=== PATIENT | male | born 1960 ===

== ENCOUNTER 2020-11-04 11:36 | Inpatient (IN) | payer MEDICARE ==
--- NOTE | 2020-11-05 08:08 | History and Physical Report ---
GP History & Physical - History of Present Illness Date of admission: 11/04/20 Date of Examination: 11/05/20 History of Present Illness: HPI Patient is a single, currently unemployed on SSI and homeless male with past psychiatric history of schizophrenia and past medical history of hypertension who presents today because he was advised by medical doctor that he needs mental health treatment. Patient states that he is hearing voices and had voiced being suicidal and also feeling depressed to the provider. Patient reported he is very lonely, and currently does not have a place to stay after being ejected from where he was living about a week ago due to failure to pay rent. Patient also reported that most of his family members attend, and the ones that are alive do not want to have anything to do with him. Patient presented with suicidal ideation, helplessness and hopelessness. Also endorses hearing voices telling him to end his life. Patient reports he has tried walking into the traffic so that he can get hit by car and . PAST PSYCHIATRIC HISTORY: Diagnoses: Schizophrenia Suicide attempts or Self-harm behavior: Yes Prior psychiatric hospitalizations: Yes Substance Abuse history: None reported Previous psychiatric medications tried: BuSpar, Celexa, Zyprexa Outpatient treatment: None report PAST MEDICAL HISTORY: Hypertension, diabetes Family Psychiatric History: None reported or documented SOCIAL HISTORY Marital Status: Single Living Arrangements: Homeless Employment Status: SSI Access to guns/weapons: None report Education: 12th grade History of Abuse: None report Legal History: Yes REVIEW OF SYSTEMS Constitutional: Negative for weight loss ENT: Negative for stridor Respiratory: Negative for cough or hemoptysis All other systems reviewed and are negative MENTAL STATUS EXAMINATION General Appearance and Behavior: Age appropriate, good hygiene, wearing appropriate clothes,, good eye contact Cooperation: Participating/engaged, but Guarded Psychomotor Behavior: Psychomotor normal Mood: depressed Affect and affective range: irritable, labile Thought Process: illogical Thought Content: hopelessness, helplessness Speech: Normal rate, volume and rythm Intellectual Functioning: Average Suicidal Ideation: SI Homicidal Ideation: Denies HI Impulse Control: Impaired Insight and Judgment: Limited insight and judgment Memory: Normal Attention: Normal Orientation: Alert, oriented Diagnoses: Treatment Plan Assessment and Plan - Psychiatric problem (1) Schizoaffective disorder Current Visit: Yes Status: Acute Patient home medications were resumed Patient admitted for inpatient psychiatric evaluation, medication adjustment and close monitoring The patient's behavior, mood, sleep and appetite will be closely monitored. Patient enrolled in individual and group therapeutic sessions and encouraged to attend. Patient provided with a safe and structured environment. Patient's physical health needs will be addressed by the Hospitalist. Hospitalist Consulted Labs including CBC, CMP, Lipid profile and Hemoglobin A1C levels ordered for baseline reference Social Assessment will be completed and the Data Collector will work with patient and family to ensure a suitable and safe disposition Medication adjustment will be made as clinically indicated Usual Wellness Scientology/Preservation: - Start Trazodone 50 mg po QHS & 50 mg po QHS PRN between 10 PM & 2 AM for insomnia - Start Melatonin 5 mg po QHS to promote circadian rhythm - Start [place]-3 for brain health, reduce impulsivity, and as adjunctive treatment for mood disorder, continue upon discharge given overall benefits. - Start B1 prophylaxis with 200 mg po for 5 days The patient agreed on the treatment plan, understood the risk, benefit, alternative treatment, potential consequence of no treatment, and gave informed consent. Initial Certification Inpatient psych services: I certify that the inpatient psychiatric services are required for treatment that could reasonably be expected to improve the patient's condition. Estimated days: 7 Post hospital care: primary care provider, psychiatric provider Patient Problems: Current Active Problems Schizoaffective disorder (Acute) Medications and Allergies Allergies Allergy/AdvReac Type Severity Reaction Status Date / Time Penicillins Allergy Unknown Unverified 11/04/20 11:37 Home Medications Medication Instructions Recorded Confirmed Last Taken Type Benztropine [Cogentin] 1 mg PO BID 11/04/20 11/04/20 Unknown History Cholecalciferol (Vitamin D3) 25 mcg PO DAILY 11/04/20 11/04/20 Unknown History [Vitamin D3] Citalopram [celeXA] 20 mg PO QDAY 11/04/20 11/04/20 Unknown History Fenofibrate Nanocrystallized 54 mg PO DAILY 11/04/20 11/04/20 Unknown History [Tricor] Lovastatin [Altoprev] 40 mg PO DAILY 11/04/20 11/04/20 Unknown History OLANZapine [Zyprexa] 5 mg PO HS 11/04/20 11/04/20 Unknown History Pantoprazole Sodium [Protonix] 40 mg PO DAILY 11/04/20 11/04/20 Unknown History Psyllium Seed (with Sugar) 1 each PO HS 11/04/20 11/04/20 Unknown History [Metamucil] Solifenacin Succinate [Vesicare] 5 mg PO DAILY 11/04/20 11/04/20 Unknown History Tamsulosin [Flomax] 0.4 mg PO DAILY 11/04/20 11/04/20 Unknown History busPIRone [Buspar] 10 mg PO BID 11/04/20 11/04/20 Unknown History Assessment and Plan - Psychiatric problem (1) Schizoaffective disorder Current Visit: Yes Status: Acute Physician Certification - Certification Statement Physician Certification Statement: This is an acknowledgement statement that JUSTIN BLANCA is a 60 year old M who requires inpatient psychiatric admission for treatment which could reasonably be expected to improve the patient's condition for Estimated period of time patient will need to remain in the hospital: [ ] Plan for post-hospital care: [ ]
[2020-11-05 09:02] LABS: Basophils # (Auto) 0.1 K/mm3 (0.0-0.1); Basophils % (Auto) 0.8 % (0.0-1.8); Eosinophils # (Auto) 0.8 K/mm3 (0.0-0.4); Eosinophils % (Auto) 8.6 % (0.0-4.3); Hematocrit 46.3 % (35.5-45.6); Hemoglobin 15.8 gm/dl (11.8-15.2); Lymphocytes # (Auto) 1.1 K/mm3 (1.2-5.4); Lymphocytes % (Auto) 12.8 % (13.4-35.0); Mean Corpuscular HGB Conc 34 % (32-34); Mean Corpuscular Volume 91 fl (84-94); Monocytes # (Auto) 0.5 K/mm3 (0.0-0.8); Monocytes % (Auto) 5.5 % (0.0-7.3); Platelet Count 250 K/mm3 (140-440); Red Blood Count 5.09 M/mm3 (3.65-5.03); Red Cell Distribution Width 13.6 % (13.2-15.2)
--- NOTE | 2020-11-05 09:28 | Consultation ---
History of Present Illness - Reason for Consult Consult date: 11/05/20 Medical management - History of Present Illness This is a 60 y/o male with h/o HTN, DM, BPH, schizophrenia currently unem ployed on SSI and homeless presents today because he was advised by medical doctor that he needs mental health treatment. Patient states that he has been hearing voices and being suicidal. Patient reported he currently does not have a place to stay. He is now admitted to psych unit and medicine service consulted for medical Mx. Past medical History: h/o h/o HTN, DM, BPH, schizophrenia Past surgical History: h/o traumatic injury in the past as a child but he could not clarify what type to surgery he had. Social History: Homeless on SSI, denies any smoking, drinking and elicit drug abuse. Family History: Significant for DM in mother father and sister. Review of System: Constitutional: no fever, no chills, no weight loss Ears, eyes, nose, mouth and throat: no nasal congestion, no nasal discharge, no sinus pressure, no vision change, no red eye. Neck: No neck pain or rigidity. Cardiovascular: No chest pain, no orthopnea, no palpitations, no leg swelling Respiratory: No shortness of breath, no cough, no congestion, no wheezing Gastrointestinal: no abdominal pain, no nausea, no vomiting. + rash on abdominal fold Genitourinary : no dysuria, no hematuria Musculoskeletal: no joint swelling or muscle ache Integumentary: no rash, no pruritis Neurological: no parathesias, no numbness, no tingling Endocrine: no cold or heat intolerance, no polyuria or polydipsia Hematologic/Lymphatic: no easy bruising, no easy bleeding, no gland swelling Allergic/Immunologic: no urticaria, no angioedema. Physical exam: GENERAL: well-developed and well-nourished elderly white male lying on bed appeared to be in no discomfort. HEENT: Normocephalic. Atraumatic. No conjunctival congestion or icterus. Patient has moist mucous membranes. NECK: Supple. Trachea midline. CHEST/LUNGS: Clear to auscultated bilaterally, breathing nonlabored. No wheezes crackles or rhonchi. HEART/CARDIOVASCULAR: Regular in rate and rhythm. S1 and S2 positive. ABDOMEN: Abdomen is soft, nontender. Patient has normal bowel sounds. rash on the abdominal wall fold SKIN: There is no rash. Warm and dry. NEURO: No focal motor deficit. Follows command. MUSCULOSKELETAL: No joint effusion or tenderness. EXTRIMITY: No edema, no cyanosis or clubbing. PSYCH: Cooperative. Assessment and plan: Schizophrenia with hallucination and SI - Mx per primary HTN: BP at low normotensive, no need for any medication for now DM: apply SSI if BG >180 BPH, resume home meds Abdominal wall rash: likely fungal, apply nystatin powder, wound care DVT Px, ambulatory, SCD when on bed Medications and Allergies Allergies Allergy/AdvReac Type Severity Reaction Status Date / Time Penicillins Allergy Unknown Unverified 11/04/20 11:37 Home Medications Medication Instructions Recorded Confirmed Last Taken Type Benztropine [Cogentin] 1 mg PO BID 11/04/20 11/04/20 Unknown History Cholecalciferol (Vitamin D3) 25 mcg PO DAILY 11/04/20 11/04/20 Unknown History [Vitamin D3] Citalopram [celeXA] 20 mg PO QDAY 11/04/20 11/04/20 Unknown History Fenofibrate Nanocrystallized 54 mg PO DAILY 11/04/20 11/04/20 Unknown History [Tricor] Lovastatin [Altoprev] 40 mg PO DAILY 11/04/20 11/04/20 Unknown History OLANZapine [Zyprexa] 5 mg PO HS 11/04/20 11/04/20 Unknown History Pantoprazole Sodium [Protonix] 40 mg PO DAILY 11/04/20 11/04/20 Unknown History Psyllium Seed (with Sugar) 1 each PO HS 11/04/20 11/04/20 Unknown History [Metamucil] Solifenacin Succinate [Vesicare] 5 mg PO DAILY 11/04/20 11/04/20 Unknown History Tamsulosin [Flomax] 0.4 mg PO DAILY 11/04/20 11/04/20 Unknown History busPIRone [Buspar] 10 mg PO BID 11/04/20 11/04/20 Unknown History Results - Labs CBC & Chem 7: 11/05/20 08:24 11/05/20 08:24 Labs: Abnormal lab results 11/05/20 Range/Units 08:24 RBC 5.09 H (3.65-5.03) M/mm3 Hgb 15.8 H (11.8-15.2) gm/dl Hct 46.3 H (35.5-45.6) % Lymph % (Auto) 12.8 L (13.4-35.0) % Eos % (Auto) 8.6 H (0.0-4.3) % Lymph # (Auto) 1.1 L (1.2-5.4) K/mm3 Eos # (Auto) 0.8 H (0.0-0.4) K/mm3 Seg Neutrophils % 72.3 H (40.0-70.0) %
[2020-11-05 09:43] LABS: Alanine Aminotransferase 19 units/L (7-56); Albumin 3.5 g/dL (3.9-5); Blood Urea Nitrogen 13 mg/dL (9-20); Calcium 9.5 mg/dL (8.4-10.2); Chol/HDL Ratio 3.02 %; HDL Cholesterol 44 mg/dL (40-59); Hemolysis Index 15; LDL Cholesterol,Direct 84 mg/dL (50-130)
[2020-11-05 09:53] LABS: BUN/Creatinine Ratio 22
[2020-11-05] MEDS ORDERED: SOLIFENACIN SUCCINATE 5 MG PO SCH (10:00)
[2020-11-05] MEDS ORDERED: NON-FORMULARY EACH (Lovastatin [Altoprev] 40 MG Tab.Er.24h) PO SCH (10:00)
[2020-11-05] MEDS: busPIRone 10 MG TAB PO SCH ×2 (11:32→21:20)
[2020-11-05] MEDS: PANTOPRAZOLE 40 MG TAB PO SCH (11:32)
[2020-11-05] MEDS: CITALOPRAM 20 MG TAB PO SCH (11:32)
[2020-11-05] MEDS: CHOLECALCIFEROL (VIT D3) 1000 UNIT (25 mcg) TAB PO SCH (11:32)
[2020-11-05] MEDS: BENZTROPINE 1 MG TAB PO SCH ×2 (11:32→21:20)
[2020-11-05] MEDS: TAMSULOSIN 0.4 MG CAP PO SCH (11:32)
[2020-11-05] MEDS: FENOFIBRATE 48 MG TAB PO SCH (11:33)
[2020-11-05] MEDS: NYSTATIN POWDER 15 GM TP SCH (21:21)
[2020-11-05] MEDS: INSULIN REGULAR, HUMAN 100 UNITS/1 ML SUB-Q SCH (21:21)
[2020-11-06] MEDS: INSULIN REGULAR, HUMAN 100 UNITS/1 ML SUB-Q SCH (08:12)
--- NOTE | 2020-11-06 08:36 | Progress Note ---
Subjective Date of service: 11/06/20 Principal diagnosis: (1) Schizoaffective disorder Subjective Comment: Per PSych Nurse: pt is appropriate on the unit, interacting with peers, compliant with medication, good appetite, slept for 6hrs plus, blood sugar 102, no distress noted, will continue to monitor for safety. Psych Progress Surgery reports doing great today says a [baby on Sunday no Sunday woke him up today. Patient says he is no longer hearing voices in his head, reports mood has been good, says he got a good spirit this morning. Patient endorses good appetite and has been medication compliant. Reason for continuing inpatient treatment: Continue to observe for mood stability. REVIEW OF SYSTEMS Constitutional: Negative for weight loss ENT: Negative for stridor Respiratory: Negative for cough or hemoptysis All other systems reviewed and are negative MENTAL STATUS EXAMINATION General Appearance and Behavior: Age appropriate, good hygiene, wearing appropriate clothes, good eye contact, cooperative polite with questioning. Cooperation: Participating/engaged Psychomotor Behavior: unremarkable and within normal limits Mood: Good Affect and affective range: congruent with mood Thought Process: Fluent/Logical, Thought Content: Within reality, Speech: Normal volume, Regular rate and rhythm, Intellectual Functioning: Average Suicidal Ideation: Denies SI Homicidal Ideation: Denies HI Impulse Control: Unimpaired Insight and Judgment: Normal insight and judgment, Memory: Normal, Attention: Normal, Orientation: Alert, oriented, Assessment and Plan - Psychiatric problem (1) Schizoaffective disorder Current Visit: Yes Status: Acute Treatment Plan Continue current medication Patient admitted for inpatient psychiatric evaluation, medication adjustment and close monitoring The patient's behavior, mood, sleep and appetite will be closely monitored. Patient enrolled in individual and group therapeutic sessions and encouraged to attend. Patient provided with a safe and structured environment. Patient's physical health needs will be addressed by the Hospitalist. Hospitalist Consulted Labs including CBC, CMP, Lipid profile and Hemoglobin A1C levels ordered for baseline reference Social Assessment will be completed and the Photography Spotter will work with patient and family to ensure a suitable and safe disposition Medication adjustment will be made as clinically indicated Usual Wellness Buddhist/Preservation: - Start Trazodone 50 mg po QHS & 50 mg po QHS PRN between 10 PM & 2 AM for insomnia - Start Melatonin 5 mg po QHS to promote circadian rhythm - Start [place]-3 for brain health, reduce impulsivity, and as adjunctive treatment for mood disorder, continue upon discharge given overall benefits. - Start B1 prophylaxis with 200 mg po for 5 days The patient agreed on the treatment plan, understood the risk, benefit, alternative treatment, potential consequence of no treatment, and gave informed consent. Initial Certification Inpatient psych services: I certify that the inpatient psychiatric services are required for treatment that could reasonably be expected to improve the patient's condition. Estimated days: 6 Post hospital care: primary care provider, psychiatric provider Assessment and Plan - Patient Problems (1) Schizoaffective disorder Current Visit: Yes Status: Acute Medications and Allergies Allergies Allergy/AdvReac Type Severity Reaction Status Date / Time Penicillins Allergy Unknown Unverified 11/04/20 11:37 Home Medications Medication Instructions Recorded Confirmed Last Taken Type Benztropine [Cogentin] 1 mg PO BID 11/04/20 11/04/20 Unknown History Cholecalciferol (Vitamin D3) 25 mcg PO DAILY 11/04/20 11/04/20 Unknown History [Vitamin D3] Citalopram [celeXA] 20 mg PO QDAY 11/04/20 11/04/20 Unknown History Fenofibrate Nanocrystallized 54 mg PO DAILY 11/04/20 11/04/20 Unknown History [Tricor] Lovastatin [Altoprev] 40 mg PO DAILY 11/04/20 11/04/20 Unknown History OLANZapine [Zyprexa] 5 mg PO HS 11/04/20 11/04/20 Unknown History Pantoprazole Sodium [Protonix] 40 mg PO DAILY 11/04/20 11/04/20 Unknown History Psyllium Seed (with Sugar) 1 each PO HS 11/04/20 11/04/20 Unknown History [Metamucil] Solifenacin Succinate [Vesicare] 5 mg PO DAILY 11/04/20 11/04/20 Unknown History Tamsulosin [Flomax] 0.4 mg PO DAILY 11/04/20 11/04/20 Unknown History busPIRone [Buspar] 10 mg PO BID 11/04/20 11/04/20 Unknown History Active Meds: Active Medications Atorvastatin Calcium (Atorvastatin 10 Mg Tab) 10 mg PO QHS [facility] [place] Last Admin: 11/05/20 21:20 Dose: 10 mg Documented by: Benztropine Mesylate (Benztropine 1 Mg Tab) 1 mg PO BID [facility] [place] Last Admin: 11/05/20 21:20 Dose: 1 mg Documented by: Buspirone HCl (Buspirone 10 Mg Tab) 10 mg PO BID [facility] [place] Last Admin: 11/05/20 21:20 Dose: 10 mg Documented by: Cholecalciferol (Cholecalciferol (Vit D3) 1000 Unit (25 Mcg) Tab) 1,000 unit PO DAILY [facility] [place] Last Admin: 11/05/20 11:32 Dose: 1,000 unit Documented by: Citalopram Hydrobromide (Citalopram 20 Mg Tab) 20 mg PO QDAY [facility] [place] Last Admin: 11/05/20 11:32 Dose: 20 mg Documented by: Fenofibrate (Fenofibrate 48 Mg Tab) 48 mg PO DAILY [facility] [place] Last Admin: 11/05/20 11:33 Dose: 48 mg Documented by: Insulin Human Regular (Insulin Regular, Human 100 Units/1 Ml) 0 units SUB-Q ACHS [facility] [place]; Protocol Last Admin: 11/06/20 08:12 Dose: Not Given Documented by: Miscellaneous Medication (Solifenacin Succinate [Vesicare]) 5 mg PO DAILY [facility] [place] Nystatin (Nystatin Powder 15 Gm) 1 applic TP BID [facility] [place] Last Admin: 11/05/20 21:21 Dose: 1 applic Documented by: Olanzapine (Olanzapine 5 Mg Tab) 5 mg PO HS [facility] [place] Last Admin: 11/05/20 21:20 Dose: 5 mg Documented by: Pantoprazole Sodium (Pantoprazole 40 Mg Tab) 40 mg PO DAILY [facility] [place] Last Admin: 11/05/20 11:32 Dose: 40 mg Documented by: Tamsulosin HCl (Tamsulosin 0.4 Mg Cap) 0.4 mg PO DAILY [facility] [place] Last Admin: 11/05/20 11:32 Dose: 0.4 mg Documented by: Results - Results Labs/Vitals: Laboratory Last Values WBC 8.9 K/mm3 (4.5-11.0) 11/05/20 08:24 RBC 5.09 M/mm3 (3.65-5.03) H 11/05/20 08:24 Hgb 15.8 gm/dl (11.8-15.2) H 11/05/20 08:24 Hct 46.3 % (35.5-45.6) H 11/05/20 08:24 MCV 91 fl (84-94) 11/05/20 08:24 MCH 31 pg (28-32) 11/05/20 08:24 MCHC 34 % (32-34) 11/05/20 08:24 RDW 13.6 % (13.2-15.2) 11/05/20 08:24 Plt Count 250 K/mm3 (140-440) 11/05/20 08:24 Lymph % (Auto) 12.8 % (13.4-35.0) L 11/05/20 08:24 [place] % (Auto) 5.5 % (0.0-7.3) 11/05/20 08:24 Eos % (Auto) 8.6 % (0.0-4.3) H 11/05/20 08:24 Baso % (Auto) 0.8 % (0.0-1.8) 11/05/20 08:24 Lymph # (Auto) 1.1 K/mm3 (1.2-5.4) L 11/05/20 08:24 [place] # (Auto) 0.5 K/mm3 (0.0-0.8) 11/05/20 08:24 Eos # (Auto) 0.8 K/mm3 (0.0-0.4) H 11/05/20 08:24 Baso # (Auto) 0.1 K/mm3 (0.0-0.1) 11/05/20 08:24 Seg Neutrophils % 72.3 % (40.0-70.0) H 11/05/20 08:24 Seg Neutrophils # 6.4 K/mm3 (1.8-7.7) 11/05/20 08:24 Sodium 139 mmol/L (137-145) 11/05/20 08:24 Potassium 4.0 mmol/L (3.6-5.0) 11/05/20 08:24 Chloride 105.0 mmol/L (98-107) 11/05/20 08:24 Carbon Dioxide 21 mmol/L (22-30) L 11/05/20 08:24 Anion Gap 17 mmol/L 11/05/20 08:24 BUN 13 mg/dL (9-20) 11/05/20 08:24 Creatinine 0.6 mg/dL (0.8-1.3) L 11/05/20 08:24 Estimated GFR > 60 ml/min 11/05/20 08:24 BUN/Creatinine Ratio 22 % 11/05/20 08:24 Glucose 78 mg/dL (75-100) 11/05/20 08:24 POC Glucose 102 mg/dL (70-105) 11/06/20 06:25 Hemoglobin A1c 5.2 % (4-6) 11/05/20 08:24 Calcium 9.5 mg/dL (8.4-10.2) 11/05/20 08:24 Total Bilirubin 0.70 mg/dL (0.1-1.2) 11/05/20 08:24 AST 19 units/L (5-40) 11/05/20 08:24 ALT 19 units/L (7-56) 11/05/20 08:24 Alkaline Phosphatase 82 units/L (35-129) 11/05/20 08:24 Total Protein 6.8 g/dL (6.3-8.2) 11/05/20 08:24 Albumin 3.5 g/dL (3.9-5) L 11/05/20 08:24 Albumin/Globulin Ratio 1.1 % 11/05/20 08:24 Triglycerides 87 mg/dL (2-149) 11/05/20 08:24 Cholesterol 133 mg/dL (50-199) 11/05/20 08:24 LDL Cholesterol Direct 84 mg/dL (50-130) 11/05/20 08:24 HDL Cholesterol 44 mg/dL (40-59) 11/05/20 08:24 Cholesterol/HDL Ratio 3.02 % 11/05/20 08:24 TSH 1.580 mlU/mL (0.270-4.200) 11/05/20 08:24 Last Vital Signs Temp 98.2 F 11/05/20 22:00 Pulse 66 11/05/20 22:00 Resp 18 11/05/20 22:00 BP 125/59 11/05/20 22:00 Pulse Ox 99 11/05/20 22:00
[2020-11-06] MEDS: BENZTROPINE 1 MG TAB PO SCH ×2 (09:02→22:00)
[2020-11-06] MEDS: CITALOPRAM 20 MG TAB PO SCH (09:02)
[2020-11-06] MEDS: busPIRone 10 MG TAB PO SCH ×2 (09:02→22:00)
[2020-11-06] MEDS: PANTOPRAZOLE 40 MG TAB PO SCH (09:02)
[2020-11-06] MEDS: FENOFIBRATE 48 MG TAB PO SCH (09:02)
[2020-11-06] MEDS: TAMSULOSIN 0.4 MG CAP PO SCH (09:03)
[2020-11-06] MEDS: CHOLECALCIFEROL (VIT D3) 1000 UNIT (25 mcg) TAB PO SCH (09:03)
[2020-11-06] MEDS: NYSTATIN POWDER 15 GM TP SCH ×2 (09:05→22:01)
--- NOTE | 2020-11-07 08:42 | Progress Note ---
Subjective Date of service: 11/07/20 Principal diagnosis: (1) Schizoaffective disorder Subjective Comment: Per PSych Nurse: Patient spent most of the day in the activity room interacting with peers. He presents as calm and content. He took a brief nap this afternoon. He also used the phone multiple times. Patient denies si/hi/ah/vh. He has a good appetite. He is medication compliant. His accuchecks were changed from ah/hs to daily because he stated he had never taken insulin or po meds for diabetes. His Ha1c was 5.2. Will continue to monitor patient for safety. Initialized on 11/06/20 18:36 - END OF NOTE Psych Progress Patient describes a good and stable mood, denies being depressed or excessively nervous. Patient eats and sleeps well. Patient denies panic attacks, recurrent nightmares or flashbacks. Patient denies symptoms suggestive of OCD or PTSD. Patient denies hallucinations, paranoia, thought interference and no features suggestive of hypomania or chiquita. Patiently completely denies suicidal or homicidal thoughts. Reason for continuing inpatient treatment: Continue to observe for mood stability. REVIEW OF SYSTEMS Constitutional: Negative for weight loss ENT: Negative for stridor Respiratory: Negative for cough or hemoptysis All other systems reviewed and are negative MENTAL STATUS EXAMINATION General Appearance and Behavior: Age appropriate, good hygiene, wearing appropriate clothes, good eye contact, cooperative polite with questioning. Cooperation: Participating/engaged Psychomotor Behavior: unremarkable and within normal limits Mood: Good Affect and affective range: congruent with mood Thought Process: Fluent/Logical, Thought Content: Within reality, Speech: Normal volume, Regular rate and rhythm, Intellectual Functioning: Average Suicidal Ideation: Denies SI Homicidal Ideation: Denies HI Impulse Control: Unimpaired Insight and Judgment: Normal insight and judgment, Memory: Normal, Attention: Normal, Orientation: Alert, oriented, Assessment and Plan - Psychiatric problem (1) Schizoaffective disorder Current Visit: Yes Status: Acute Treatment Plan Continue current medication Patient admitted for inpatient psychiatric evaluation, medication adjustment and close monitoring The patient's behavior, mood, sleep and appetite will be closely monitored. Patient enrolled in individual and group therapeutic sessions and encouraged to attend. Patient provided with a safe and structured environment. Patient's physical health needs will be addressed by the Hospitalist. Hospitalist Consulted Labs including CBC, CMP, Lipid profile and Hemoglobin A1C levels ordered for baseline reference Social Assessment will be completed and the Enterprise Analyst will work with patient and family to ensure a suitable and safe disposition Medication adjustment will be made as clinically indicated Usual Wellness Bahai/Preservation: - Start Trazodone 50 mg po QHS & 50 mg po QHS PRN between 10 PM & 2 AM for insomnia - Start Melatonin 5 mg po QHS to promote circadian rhythm - Start [place]-3 for brain health, reduce impulsivity, and as adjunctive treatment for mood disorder, continue upon discharge given overall benefits. - Start B1 prophylaxis with 200 mg po for 5 days The patient agreed on the treatment plan, understood the risk, benefit, alternative treatment, potential consequence of no treatment, and gave informed consent. Initial Certification Inpatient psych services: I certify that the inpatient psychiatric services are required for treatment that could reasonably be expected to improve the patient's condition. Estimated days: 3 Post hospital care: primary care provider, psychiatric provider Assessment and Plan - Patient Problems (1) Schizoaffective disorder Current Visit: Yes Status: Acute Medications and Allergies Allergies Allergy/AdvReac Type Severity Reaction Status Date / Time Penicillins Allergy Unknown Unverified 11/04/20 11:37 Home Medications Medication Instructions Recorded Confirmed Last Taken Type Benztropine [Cogentin] 1 mg PO BID 11/04/20 11/04/20 Unknown History Cholecalciferol (Vitamin D3) 25 mcg PO DAILY 11/04/20 11/04/20 Unknown History [Vitamin D3] Citalopram [celeXA] 20 mg PO QDAY 11/04/20 11/04/20 Unknown History Fenofibrate Nanocrystallized 54 mg PO DAILY 11/04/20 11/04/20 Unknown History [Tricor] Lovastatin [Altoprev] 40 mg PO DAILY 11/04/20 11/04/20 Unknown History OLANZapine [Zyprexa] 5 mg PO HS 11/04/20 11/04/20 Unknown History Pantoprazole Sodium [Protonix] 40 mg PO DAILY 11/04/20 11/04/20 Unknown History Psyllium Seed (with Sugar) 1 each PO HS 11/04/20 11/04/20 Unknown History [Metamucil] Solifenacin Succinate [Vesicare] 5 mg PO DAILY 11/04/20 11/04/20 Unknown History Tamsulosin [Flomax] 0.4 mg PO DAILY 11/04/20 11/04/20 Unknown History busPIRone [Buspar] 10 mg PO BID 11/04/20 11/04/20 Unknown History Active Meds: Active Medications Atorvastatin Calcium (Atorvastatin 10 Mg Tab) 10 mg PO QHS [facility] Last Admin: 11/06/20 22:00 Dose: 10 mg Documented by: Benztropine Mesylate (Benztropine 1 Mg Tab) 1 mg PO BID [facility] Last Admin: 11/06/20 22:00 Dose: 1 mg Documented by: Buspirone HCl (Buspirone 10 Mg Tab) 10 mg PO BID [facility] Last Admin: 11/06/20 22:00 Dose: 10 mg Documented by: Cholecalciferol (Cholecalciferol (Vit D3) 1000 Unit (25 Mcg) Tab) 1,000 unit PO DAILY [facility] Last Admin: 11/06/20 09:03 Dose: 1,000 unit Documented by: Citalopram Hydrobromide (Citalopram 20 Mg Tab) 20 mg PO QDAY [facility] Last Admin: 11/06/20 09:02 Dose: 20 mg Documented by: Fenofibrate (Fenofibrate 48 Mg Tab) 48 mg PO DAILY [facility] Last Admin: 11/06/20 09:02 Dose: 48 mg Documented by: Miscellaneous Medication (Solifenacin Succinate [Vesicare]) 5 mg PO DAILY [facility] Nystatin (Nystatin Powder 15 Gm) 1 applic TP BID [facility] Last Admin: 11/06/20 22:01 Dose: 1 applic Documented by: Olanzapine (Olanzapine 5 Mg Tab) 5 mg PO HS [facility] Last Admin: 11/06/20 22:00 Dose: 5 mg Documented by: Pantoprazole Sodium (Pantoprazole 40 Mg Tab) 40 mg PO DAILY [facility] Last Admin: 11/06/20 09:02 Dose: 40 mg Documented by: Tamsulosin HCl (Tamsulosin 0.4 Mg Cap) 0.4 mg PO DAILY [facility] Last Admin: 11/06/20 09:03 Dose: 0.4 mg Documented by: Results - Results Labs/Vitals: Laboratory Last Values WBC 8.9 K/mm3 (4.5-11.0) 11/05/20 08:24 RBC 5.09 M/mm3 (3.65-5.03) H 11/05/20 08:24 Hgb 15.8 gm/dl (11.8-15.2) H 11/05/20 08:24 Hct 46.3 % (35.5-45.6) H 11/05/20 08:24 MCV 91 fl (84-94) 11/05/20 08:24 MCH 31 pg (28-32) 11/05/20 08:24 MCHC 34 % (32-34) 11/05/20 08:24 RDW 13.6 % (13.2-15.2) 11/05/20 08:24 Plt Count 250 K/mm3 (140-440) 11/05/20 08:24 Lymph % (Auto) 12.8 % (13.4-35.0) L 11/05/20 08:24 [place] % (Auto) 5.5 % (0.0-7.3) 11/05/20 08:24 Eos % (Auto) 8.6 % (0.0-4.3) H 11/05/20 08:24 Baso % (Auto) 0.8 % (0.0-1.8) 11/05/20 08:24 Lymph # (Auto) 1.1 K/mm3 (1.2-5.4) L 11/05/20 08:24 [place] # (Auto) 0.5 K/mm3 (0.0-0.8) 11/05/20 08:24 Eos # (Auto) 0.8 K/mm3 (0.0-0.4) H 11/05/20 08:24 Baso # (Auto) 0.1 K/mm3 (0.0-0.1) 11/05/20 08:24 Seg Neutrophils % 72.3 % (40.0-70.0) H 11/05/20 08:24 Seg Neutrophils # 6.4 K/mm3 (1.8-7.7) 11/05/20 08:24 Sodium 139 mmol/L (137-145) 11/05/20 08:24 Potassium 4.0 mmol/L (3.6-5.0) 11/05/20 08:24 Chloride 105.0 mmol/L (98-107) 11/05/20 08:24 Carbon Dioxide 21 mmol/L (22-30) L 11/05/20 08:24 Anion Gap 17 mmol/L 11/05/20 08:24 BUN 13 mg/dL (9-20) 11/05/20 08:24 Creatinine 0.6 mg/dL (0.8-1.3) L 11/05/20 08:24 Estimated GFR > 60 ml/min 11/05/20 08:24 BUN/Creatinine Ratio 22 % 11/05/20 08:24 Glucose 78 mg/dL (75-100) 11/05/20 08:24 POC Glucose 126 mg/dL (70-105) H 11/06/20 17:02 Hemoglobin A1c 5.2 % (4-6) 11/05/20 08:24 Calcium 9.5 mg/dL (8.4-10.2) 11/05/20 08:24 Total Bilirubin 0.70 mg/dL (0.1-1.2) 11/05/20 08:24 AST 19 units/L (5-40) 11/05/20 08:24 ALT 19 units/L (7-56) 11/05/20 08:24 Alkaline Phosphatase 82 units/L (35-129) 11/05/20 08:24 Total Protein 6.8 g/dL (6.3-8.2) 11/05/20 08:24 Albumin 3.5 g/dL (3.9-5) L 11/05/20 08:24 Albumin/Globulin Ratio 1.1 % 11/05/20 08:24 Triglycerides 87 mg/dL (2-149) 11/05/20 08:24 Cholesterol 133 mg/dL (50-199) 11/05/20 08:24 LDL Cholesterol Direct 84 mg/dL (50-130) 11/05/20 08:24 HDL Cholesterol 44 mg/dL (40-59) 11/05/20 08:24 Cholesterol/HDL Ratio 3.02 % 11/05/20 08:24 TSH 1.580 mlU/mL (0.270-4.200) 11/05/20 08:24 Last Vital Signs Temp 97.6 F 11/06/20 19:34 Pulse 57 L 11/06/20 19:34 Resp 16 11/06/20 19:34 BP 127/60 11/06/20 19:34 Pulse Ox 100 11/06/20 19:34
[2020-11-07] MEDS: NYSTATIN POWDER 15 GM TP SCH ×2 (09:20→21:46)
[2020-11-07] MEDS: busPIRone 10 MG TAB PO SCH ×2 (09:21→21:45)
[2020-11-07] MEDS: PANTOPRAZOLE 40 MG TAB PO SCH (09:21)
[2020-11-07] MEDS: FENOFIBRATE 48 MG TAB PO SCH (09:21)
[2020-11-07] MEDS: CHOLECALCIFEROL (VIT D3) 1000 UNIT (25 mcg) TAB PO SCH (09:21)
[2020-11-07] MEDS: BENZTROPINE 1 MG TAB PO SCH ×2 (09:21→21:45)
[2020-11-07] MEDS: CITALOPRAM 20 MG TAB PO SCH (09:21)
[2020-11-07] MEDS: TAMSULOSIN 0.4 MG CAP PO SCH (09:23)
--- NOTE | 2020-11-08 07:49 | Progress Note ---
Subjective Date of service: 11/08/20 Principal diagnosis: (1) Schizoaffective disorder Subjective Comment: Per PSych Nurse: Patient has spent most of the day in the activity room interacting with his peers. He presents as needy. He has multiple request for various things. He denies si/hi/ah/vh. He is medication compliant. Will continue to monitor patient for safety. Psych Progress Patient describes a good and stable mood, denies being depressed or excessively nervous. Patient eats and sleeps well. Patient denies panic attacks, recurrent nightmares or flashbacks. Patient denies symptoms suggestive of OCD or PTSD. Patient denies hallucinations, paranoia, thought interference and no features suggestive of hypomania or chiquita. Patiently completely denies suicidal or homicidal thoughts. Reason for continuing inpatient treatment: Planning for safety discharge REVIEW OF SYSTEMS Constitutional: Negative for weight loss ENT: Negative for stridor Respiratory: Negative for cough or hemoptysis All other systems reviewed and are negative MENTAL STATUS EXAMINATION General Appearance and Behavior: Age appropriate, good hygiene, wearing appropriate clothes, good eye contact, cooperative polite with questioning. Cooperation: Participating/engaged Psychomotor Behavior: unremarkable and within normal limits Mood: Good Affect and affective range: congruent with mood Thought Process: Fluent/Logical, Thought Content: Within reality, Speech: Normal volume, Regular rate and rhythm, Intellectual Functioning: Average Suicidal Ideation: Denies SI Homicidal Ideation: Denies HI Impulse Control: Unimpaired Insight and Judgment: Normal insight and judgment, Memory: Normal, Attention: Normal, Orientation: Alert, oriented, Assessment and Plan - Psychiatric problem (1) Schizoaffective disorder Current Visit: Yes Status: Acute Treatment Plan Continue current medication Patient admitted for inpatient psychiatric evaluation, medication adjustment and close monitoring The patient's behavior, mood, sleep and appetite will be closely monitored. Patient enrolled in individual and group therapeutic sessions and encouraged to attend. Patient provided with a safe and structured environment. Patient's physical health needs will be addressed by the Hospitalist. Hospitalist Consulted Labs including CBC, CMP, Lipid profile and Hemoglobin A1C levels ordered for baseline reference Social Assessment will be completed and the Grid Trimmer will work with patient and family to ensure a suitable and safe disposition Medication adjustment will be made as clinically indicated Usual Wellness Roman Catholic/Preservation: - Start Trazodone 50 mg po QHS & 50 mg po QHS PRN between 10 PM & 2 AM for insomnia - Start Melatonin 5 mg po QHS to promote circadian rhythm - Start [place]-3 for brain health, reduce impulsivity, and as adjunctive treatment for mood disorder, continue upon discharge given overall benefits. - Start B1 prophylaxis with 200 mg po for 5 days The patient agreed on the treatment plan, understood the risk, benefit, alternative treatment, potential consequence of no treatment, and gave informed consent. Initial Certification Inpatient psych services: I certify that the inpatient psychiatric services are required for treatment that could reasonably be expected to improve the patient's condition. Estimated days: 2 Post hospital care: primary care provider, psychiatric provider Assessment and Plan - Patient Problems (1) Schizoaffective disorder Current Visit: Yes Status: Acute Medications and Allergies Allergies Allergy/AdvReac Type Severity Reaction Status Date / Time Penicillins Allergy Unknown Unverified 11/04/20 11:37 Home Medications Medication Instructions Recorded Confirmed Last Taken Type Benztropine [Cogentin] 1 mg PO BID 11/04/20 11/04/20 Unknown History Cholecalciferol (Vitamin D3) 25 mcg PO DAILY 11/04/20 11/04/20 Unknown History [Vitamin D3] Citalopram [celeXA] 20 mg PO QDAY 11/04/20 11/04/20 Unknown History Fenofibrate Nanocrystallized 54 mg PO DAILY 11/04/20 11/04/20 Unknown History [Tricor] Lovastatin [Altoprev] 40 mg PO DAILY 11/04/20 11/04/20 Unknown History OLANZapine [Zyprexa] 5 mg PO HS 11/04/20 11/04/20 Unknown History Pantoprazole Sodium [Protonix] 40 mg PO DAILY 11/04/20 11/04/20 Unknown History Psyllium Seed (with Sugar) 1 each PO HS 11/04/20 11/04/20 Unknown History [Metamucil] Solifenacin Succinate [Vesicare] 5 mg PO DAILY 11/04/20 11/04/20 Unknown History Tamsulosin [Flomax] 0.4 mg PO DAILY 11/04/20 11/04/20 Unknown History busPIRone [Buspar] 10 mg PO BID 11/04/20 11/04/20 Unknown History Active Meds: Active Medications Atorvastatin Calcium (Atorvastatin 10 Mg Tab) 10 mg PO QHS [facility] Last Admin: 11/07/20 22:40 Dose: 10 mg Documented by: Benztropine Mesylate (Benztropine 1 Mg Tab) 1 mg PO BID [facility] Last Admin: 11/07/20 21:45 Dose: 1 mg Documented by: Buspirone HCl (Buspirone 10 Mg Tab) 10 mg PO BID [facility] Last Admin: 11/07/20 21:45 Dose: 10 mg Documented by: Cholecalciferol (Cholecalciferol (Vit D3) 1000 Unit (25 Mcg) Tab) 1,000 unit PO DAILY [facility] Last Admin: 11/07/20 09:21 Dose: 1,000 unit Documented by: Citalopram Hydrobromide (Citalopram 20 Mg Tab) 20 mg PO QDAY [facility] Last Admin: 11/07/20 09:21 Dose: 20 mg Documented by: Fenofibrate (Fenofibrate 48 Mg Tab) 48 mg PO DAILY [facility] Last Admin: 11/07/20 09:21 Dose: 48 mg Documented by: Miscellaneous Medication (Solifenacin Succinate [Vesicare]) 5 mg PO DAILY [facility] Nystatin (Nystatin Powder 15 Gm) 1 applic TP BID [facility] Last Admin: 11/07/20 21:46 Dose: 1 applic Documented by: Olanzapine (Olanzapine 5 Mg Tab) 5 mg PO HS [facility] Last Admin: 11/07/20 21:45 Dose: 5 mg Documented by: Pantoprazole Sodium (Pantoprazole 40 Mg Tab) 40 mg PO DAILY [facility] Last Admin: 11/07/20 09:21 Dose: 40 mg Documented by: Tamsulosin HCl (Tamsulosin 0.4 Mg Cap) 0.4 mg PO DAILY [facility] Last Admin: 11/07/20 09:23 Dose: 0.4 mg Documented by: Results - Results Labs/Vitals: Laboratory Last Values WBC 8.9 K/mm3 (4.5-11.0) 11/05/20 08:24 RBC 5.09 M/mm3 (3.65-5.03) H 11/05/20 08:24 Hgb 15.8 gm/dl (11.8-15.2) H 11/05/20 08:24 Hct 46.3 % (35.5-45.6) H 11/05/20 08:24 MCV 91 fl (84-94) 11/05/20 08:24 MCH 31 pg (28-32) 11/05/20 08:24 MCHC 34 % (32-34) 11/05/20 08:24 RDW 13.6 % (13.2-15.2) 11/05/20 08:24 Plt Count 250 K/mm3 (140-440) 11/05/20 08:24 Lymph % (Auto) 12.8 % (13.4-35.0) L 11/05/20 08:24 [place] % (Auto) 5.5 % (0.0-7.3) 11/05/20 08:24 Eos % (Auto) 8.6 % (0.0-4.3) H 11/05/20 08:24 Baso % (Auto) 0.8 % (0.0-1.8) 11/05/20 08:24 Lymph # (Auto) 1.1 K/mm3 (1.2-5.4) L 11/05/20 08:24 [place] # (Auto) 0.5 K/mm3 (0.0-0.8) 11/05/20 08:24 Eos # (Auto) 0.8 K/mm3 (0.0-0.4) H 11/05/20 08:24 Baso # (Auto) 0.1 K/mm3 (0.0-0.1) 11/05/20 08:24 Seg Neutrophils % 72.3 % (40.0-70.0) H 11/05/20 08:24 Seg Neutrophils # 6.4 K/mm3 (1.8-7.7) 11/05/20 08:24 Sodium 139 mmol/L (137-145) 11/05/20 08:24 Potassium 4.0 mmol/L (3.6-5.0) 11/05/20 08:24 Chloride 105.0 mmol/L (98-107) 11/05/20 08:24 Carbon Dioxide 21 mmol/L (22-30) L 11/05/20 08:24 Anion Gap 17 mmol/L 11/05/20 08:24 BUN 13 mg/dL (9-20) 11/05/20 08:24 Creatinine 0.6 mg/dL (0.8-1.3) L 11/05/20 08:24 Estimated GFR > 60 ml/min 11/05/20 08:24 BUN/Creatinine Ratio 22 % 11/05/20 08:24 Glucose 78 mg/dL (75-100) 11/05/20 08:24 POC Glucose 71 mg/dL (70-105) 11/07/20 08:03 Hemoglobin A1c 5.2 % (4-6) 11/05/20 08:24 Calcium 9.5 mg/dL (8.4-10.2) 11/05/20 08:24 Total Bilirubin 0.70 mg/dL (0.1-1.2) 11/05/20 08:24 AST 19 units/L (5-40) 11/05/20 08:24 ALT 19 units/L (7-56) 11/05/20 08:24 Alkaline Phosphatase 82 units/L (35-129) 11/05/20 08:24 Total Protein 6.8 g/dL (6.3-8.2) 11/05/20 08:24 Albumin 3.5 g/dL (3.9-5) L 11/05/20 08:24 Albumin/Globulin Ratio 1.1 % 11/05/20 08:24 Triglycerides 87 mg/dL (2-149) 11/05/20 08:24 Cholesterol 133 mg/dL (50-199) 11/05/20 08:24 LDL Cholesterol Direct 84 mg/dL (50-130) 11/05/20 08:24 HDL Cholesterol 44 mg/dL (40-59) 11/05/20 08:24 Cholesterol/HDL Ratio 3.02 % 11/05/20 08:24 TSH 1.580 mlU/mL (0.270-4.200) 11/05/20 08:24 Last Vital Signs Temp 97.8 F 11/07/20 19:13 Pulse 62 11/07/20 19:13 Resp 16 11/07/20 19:13 BP 113/53 11/07/20 19:13 Pulse Ox 100 11/07/20 19:13
[2020-11-08] MEDS: CITALOPRAM 20 MG TAB PO SCH (10:24)
[2020-11-08] MEDS: busPIRone 10 MG TAB PO SCH ×2 (10:24→21:41)
[2020-11-08] MEDS: CHOLECALCIFEROL (VIT D3) 1000 UNIT (25 mcg) TAB PO SCH (10:25)
[2020-11-08] MEDS: FENOFIBRATE 48 MG TAB PO SCH (10:25)
[2020-11-08] MEDS: TAMSULOSIN 0.4 MG CAP PO SCH (10:25)
[2020-11-08] MEDS: BENZTROPINE 1 MG TAB PO SCH ×2 (10:25→21:41)
[2020-11-08] MEDS: PANTOPRAZOLE 40 MG TAB PO SCH (10:25)
[2020-11-08] MEDS: NYSTATIN POWDER 15 GM TP SCH ×2 (11:34→21:41)
--- NOTE | 2020-11-09 08:07 | Progress Note ---
Subjective Date of service: 11/09/20 Principal diagnosis: (1) Schizoaffective disorder Subjective Comment: Per PSych Nurse: pt was present for group but refused to engage initially aeb stating "I can;t do that". pt received prompting/redirection from staff and peers. pt did try to find some of the hidden objects, but did not participate long. pt was anxious about discharge and making a phone call. pt asked to speak with social services director and to use the phone. pt exited group and came back frust rated due to pt believed he was discharging today. Psych Progress Patient describes a good and stable mood, denies being depressed or excessively nervous. Patient eats and sleeps well. Patient denies panic attacks, recurrent nightmares or flashbacks. Patient denies symptoms suggestive of OCD or PTSD. Patient denies hallucinations, paranoia, thought interference and no features suggestive of hypomania or chiquita. Patiently completely denies suicidal or homicidal thoughts. Reason for continuing inpatient treatment: Planning for safety discharge REVIEW OF SYSTEMS Constitutional: Negative for weight loss ENT: Negative for stridor Respiratory: Negative for cough or hemoptysis All other systems reviewed and are negative MENTAL STATUS EXAMINATION General Appearance and Behavior: Age appropriate, good hygiene, wearing appropriate clothes, good eye contact, cooperative polite with questioning. Cooperation: Participating/engaged Psychomotor Behavior: unremarkable and within normal limits Mood: Good Affect and affective range: congruent with mood Thought Process: Fluent/Logical, Thought Content: Within reality, Speech: Normal volume, Regular rate and rhythm, Intellectual Functioning: Average Suicidal Ideation: Denies SI Homicidal Ideation: Denies HI Impulse Control: Unimpaired Insight and Judgment: Normal insight and judgment, Memory: Normal, Attention: Normal, Orientation: Alert, oriented, Assessment and Plan - Psychiatric problem (1) Schizoaffective disorder Current Visit: Yes Status: Acute Treatment Plan Continue current medication Patient admitted for inpatient psychiatric evaluation, medication adjustment and close monitoring The patient's behavior, mood, sleep and appetite will be closely monitored. Patient enrolled in individual and group therapeutic sessions and encouraged to attend. Patient provided with a safe and structured environment. Patient's physical health needs will be addressed by the Hospitalist. Hospitalist Consulted Labs including CBC, CMP, Lipid profile and Hemoglobin A1C levels ordered for baseline reference Social Assessment will be completed and the Display Manager will work with pat ient and family to ensure a suitable and safe disposition Medication adjustment will be made as clinically indicated Usual Wellness Yarsani/Preservation: - Start Trazodone 50 mg po QHS & 50 mg po QHS PRN between 10 PM & 2 AM for insomnia - Start Melatonin 5 mg po QHS to promote circadian rhythm - Start Lowell-3 for brain health, reduce impulsivity, and as adjunctive treatment for mood disorder, continue upon discharge given overall benefits. - Start B1 prophylaxis with 200 mg po for 5 days The patient agreed on the treatment plan, understood the risk, benefit, alternative treatment, potential consequence of no treatment, and gave informed consent. Initial Certification Inpatient psych services: I certify that the inpatient psychiatric services are required for treatment that could reasonably be expected to improve the patient's condition. Estimated days: 2 Post hospital care: primary care provider, psychiatric provider Assessment and Plan - Patient Problems (1) Schizoaffective disorder Current Visit: Yes Status: Acute Medications and Allergies Allergies Allergy/AdvReac Type Severity Reaction Status Date / Time Penicillins Allergy Unknown Unverified 11/04/20 11:37 Home Medications Medication Instructions Recorded Confirmed Last Taken Type Cholecalciferol (Vitamin D3) 25 mcg PO DAILY 11/04/20 11/04/20 Unknown History [Vitamin D3] Fenofibrate Nanocrystallized 54 mg PO DAILY 11/04/20 11/04/20 Unknown History [Tricor] Lovastatin [Altoprev] 40 mg PO DAILY 11/04/20 11/04/20 Unknown History Pantoprazole Sodium [Protonix] 40 mg PO DAILY 11/04/20 11/04/20 Unknown History Psyllium Seed (with Sugar) 1 each PO HS 11/04/20 11/04/20 Unknown History [Metamucil] Solifenacin Succinate [Vesicare] 5 mg PO DAILY 11/04/20 11/04/20 Unknown History Tamsulosin [Flomax] 0.4 mg PO DAILY 11/04/20 11/04/20 Unknown History Benztropine [Cogentin] 1 mg PO BID #60 tab 11/08/20 Unknown Rx Citalopram [Celexa] 20 mg PO QDAY #60 tab 11/08/20 Unknown Rx OLANZapine [Zyprexa] 5 mg PO HS #30 tab 11/08/20 Unknown Rx busPIRone [Buspar] 10 mg PO BID #60 tab 04/19/21 Unknown Rx Active Meds: Active Medications Atorvastatin Calcium (Atorvastatin 10 Mg Tab) 10 mg PO QHS [facility] Last Admin: 11/08/20 21:41 Dose: 10 mg Documented by: Benztropine Mesylate (Benztropine 1 Mg Tab) 1 mg PO BID [facility] Last Admin: 11/08/20 21:41 Dose: 1 mg Documented by: Buspirone HCl (Buspirone 10 Mg Tab) 10 mg PO BID [facility] Last Admin: 11/08/20 21:41 Dose: 10 mg Documented by: Cholecalciferol (Cholecalciferol (Vit D3) 1000 Unit (25 Mcg) Tab) 1,000 unit PO DAILY [facility] Last Admin: 11/08/20 10:25 Dose: 1,000 unit Documented by: Citalopram Hydrobromide (Citalopram 20 Mg Tab) 20 mg PO QDAY [facility] Last Admin: 11/08/20 10:24 Dose: 20 mg Documented by: Fenofibrate (Fenofibrate 48 Mg Tab) 48 mg PO DAILY [facility] Last Admin: 11/08/20 10:25 Dose: 48 mg Documented by: Miscellaneous Medication (Solifenacin Succinate [Vesicare]) 5 mg PO DAILY [facility] Nystatin (Nystatin Powder 15 Gm) 1 applic TP BID [facility] Last Admin: 11/08/20 21:41 Dose: 1 applic Documented by: Olanzapine (Olanzapine 5 Mg Tab) 5 mg PO HS [facility] Last Admin: 11/08/20 21:41 Dose: 5 mg Documented by: Pantoprazole Sodium (Pantoprazole 40 Mg Tab) 40 mg PO DAILY [facility] Last Admin: 11/08/20 10:25 Dose: 40 mg Documented by: Tamsulosin HCl (Tamsulosin 0.4 Mg Cap) 0.4 mg PO DAILY [facility] Last Admin: 11/08/20 10:25 Dose: 0.4 mg Documented by: Results - Results Labs/Vitals: Laboratory Last Values WBC 8.9 K/mm3 (4.5-11.0) 11/05/20 08:24 RBC 5.09 M/mm3 (3.65-5.03) H 11/05/20 08:24 Hgb 15.8 gm/dl (11.8-15.2) H 11/05/20 08:24 Hct 46.3 % (35.5-45.6) H 11/05/20 08:24 MCV 91 fl (84-94) 11/05/20 08:24 MCH 31 pg (28-32) 11/05/20 08:24 MCHC 34 % (32-34) 11/05/20 08:24 RDW 13.6 % (13.2-15.2) 11/05/20 08:24 Plt Count 250 K/mm3 (140-440) 11/05/20 08:24 Lymph % (Auto) 12.8 % (13.4-35.0) L 11/05/20 08:24 Louisa % (Auto) 5.5 % (0.0-7.3) 11/05/20 08:24 Eos % (Auto) 8.6 % (0.0-4.3) H 11/05/20 08:24 Baso % (Auto) 0.8 % (0.0-1.8) 11/05/20 08:24 Lymph # (Auto) 1.1 K/mm3 (1.2-5.4) L 11/05/20 08:24 Louisa # (Auto) 0.5 K/mm3 (0.0-0.8) 11/05/20 08:24 Eos # (Auto) 0.8 K/mm3 (0.0-0.4) H 11/05/20 08:24 Baso # (Auto) 0.1 K/mm3 (0.0-0.1) 11/05/20 08:24 Seg Neutrophils % 72.3 % (40.0-70.0) H 11/05/20 08:24 Seg Neutrophils # 6.4 K/mm3 (1.8-7.7) 11/05/20 08:24 Sodium 139 mmol/L (137-145) 11/05/20 08:24 Potassium 4.0 mmol/L (3.6-5.0) 11/05/20 08:24 Chloride 105.0 mmol/L (98-107) 11/05/20 08:24 Carbon Dioxide 21 mmol/L (22-30) L 11/05/20 08:24 Anion Gap 17 mmol/L 11/05/20 08:24 BUN 13 mg/dL (9-20) 11/05/20 08:24 Creatinine 0.6 mg/dL (0.8-1.3) L 11/05/20 08:24 Estimated GFR > 60 ml/min 11/05/20 08:24 BUN/Creatinine Ratio 22 % 11/05/20 08:24 Glucose 78 mg/dL (75-100) 11/05/20 08:24 POC Glucose 84 mg/dL (70-105) 11/08/20 08:11 Hemoglobin A1c 5.2 % (4-6) 11/05/20 08:24 Calcium 9.5 mg/dL (8.4-10.2) 11/05/20 08:24 Total Bilirubin 0.70 mg/dL (0.1-1.2) 11/05/20 08:24 AST 19 units/L (5-40) 11/05/20 08:24 ALT 19 units/L (7-56) 11/05/20 08:24 Alkaline Phosphatase 82 units/L (35-129) 11/05/20 08:24 Total Protein 6.8 g/dL (6.3-8.2) 11/05/20 08:24 Albumin 3.5 g/dL (3.9-5) L 11/05/20 08:24 Albumin/Globulin Ratio 1.1 % 11/05/20 08:24 Triglycerides 87 mg/dL (2-149) 11/05/20 08:24 Cholesterol 133 mg/dL (50-199) 11/05/20 08:24 LDL Cholesterol Direct 84 mg/dL (50-130) 11/05/20 08:24 HDL Cholesterol 44 mg/dL (40-59) 11/05/20 08:24 Cholesterol/HDL Ratio 3.02 % 11/05/20 08:24 TSH 1.580 mlU/mL (0.270-4.200) 11/05/20 08:24 Last Vital Signs Temp 97.7 F 11/08/20 19:50 Pulse 58 L 11/08/20 19:50 Resp 16 11/08/20 19:50 BP 119/53 11/08/20 19:50 Pulse Ox 99 11/08/20 19:50
[2020-11-09 09:41] VITALS: BP 119/54
[2020-11-09] MEDS: busPIRone 10 MG TAB PO SCH (09:57)
[2020-11-09] MEDS: TAMSULOSIN 0.4 MG CAP PO SCH (09:57)
[2020-11-09] MEDS: NYSTATIN POWDER 15 GM TP SCH (09:57)
[2020-11-09] MEDS: CITALOPRAM 20 MG TAB PO SCH (09:57)
[2020-11-09] MEDS: PANTOPRAZOLE 40 MG TAB PO SCH (09:57)
[2020-11-09] MEDS: BENZTROPINE 1 MG TAB PO SCH (09:57)
[2020-11-09] MEDS: FENOFIBRATE 48 MG TAB PO SCH (09:57)
[2020-11-09] MEDS: CHOLECALCIFEROL (VIT D3) 1000 UNIT (25 mcg) TAB PO SCH (09:57)
== END 2020-11-09 16:25 | disposition home or self-care (01) | DRG 885 ==
LOC: 3A 11:36 → UNDOADMIN 11:36 → 5A 23:50
PROVIDERS: ADMIT Psychiatry & Neurology Psychiatry; ATTEND Psychiatry & Neurology Psychiatry
DX: F25.9 Schizoaffective disorder, unspecified (principal); R45.851 Suicidal ideations; I10 Essential (primary) hypertension; N40.0 Benign prostatic hyperplasia without lower urinary tract symptoms; E11.9 Type 2 diabetes mellitus without complications; Z59.0 Homelessness; Z88.0 Allergy status to penicillin; Z79.899 Other long term (current) drug therapy; Z79.891 Long term (current) use of opiate analgesic; Z79.01 Long term (current) use of anticoagulants; Z83.3 Family history of diabetes mellitus
CPT/HCPCS: 36415; 80053; 80061; 82962; 83036; 84443; 85025; G0378; A9270-GY